=== PATIENT | female | born 1965 | race African-American/Black ===

== ENCOUNTER 2017-05-18 16:52 | Emergency (ER) | payer OTHER ==
[2017-05-18] MEDS ORDERED: NS 0.9% 1000 ML* 1,000 ML IV ONE ×2 (16:58→20:17)
[2017-05-18 17:33] LABS: Hematocrit 39 % (35-47); Mean Corpuscular HGB Conc 33 g/dl (31-36); Mean Corpuscular Hemoglobin 30 pg (27-31); Mean Corpuscular Volume 89 fL (80-97); Mean Platelet Volume 8 um3 (7.4-10.4); Red Cell Distribution Width 14 % (10.5-15); White Blood Count 7.6 10^3/ul (3.5-10.8)
[2017-05-18 17:54] LABS: Albumin 3.6 g/dL (3.2-5.2); BUN/Creatinine Ratio 12.8 (8-20); Calcium 9.2 mg/dL (8.6-10.3); EGFR African American 81.1 (>60); Globulin 3.7 g/dL (2-4); Magnesium 1.7 mg/dL (1.9-2.7); Potassium 3.8 mmol/L (3.5-5.0); Total Bilirubin 0.4 mg/dL (0.2-1.0); Total Protein 7.3 g/dL (6.4-8.9)
[2017-05-18 18:18] LABS: TSH (Thyroid Stimulating Horm) 2.03 mcIU/mL (0.34-5.60)
[2017-05-18 19:32] LABS: Urine Bilirubin Negative (Negative); Urine Glucose Negative (Negative); Urine Nitrite Negative (Negative)
[2017-05-18] MEDS ORDERED: Meclizine TAB* 12.5 MG PO ONE ×2 (20:22→21:28)
--- NOTE | 2017-05-18 21:26 | ED ---
Adán Agee Thomas, scribed for Sindy Hammer MD on 05/18/17 at 1740 . Syncope/Near Syncope - HPI Summary HPI Summary: The pt is a 51 y/o F presenting to the ED s/p a syncopal episode that occurred today at 16:00. The patient was walking in [facility] with her daughter when she began to feel lightheaded and nauseated. She sat down on a park bench, and after a minute she had a syncopal episode with LOC. Per her daughter, she had went limp and started to lean back and her head went back. When the patient woke up after a few minutes, she had no memory of the event. The patient did not go to work this AM due to generalized malaise and she did not sleep well last night. In the ED, she does note a pressure behind her eye. Pt denies headache and any pain in the ED. She is accompanied by her daughter. She has been eating normally lately. The patient had a syncopal episode with LOC two weeks ago. - History Of Current Complaint Chief Complaint: EDSyncope Time Seen by Provider: 05/18/17 16:58 Hx Obtained From: Patient, Family/Online Community Manager - daughter present Onset/Duration: Sudden Onset, Lasting Days - onset today at 16:00, Still Present Timing: Constant Context: Witnessed - by daughter Aggravating Factor(s): Nothing Alleviating Factor(s): Spontaneous Resolution Associated Signs And Symptoms: Lightheadedness, Other - Nausea, generalized malaise, pressure behind eye; NEG: WILL Related History: Similar Episode/Dx as - syncope with LOC two weeks ago - Allergies/Home Medications Allergies/Adverse Reactions: Allergies Allergy/AdvReac Type Severity Reaction Status Date / Time Bupropion [From Wellbutrin] Allergy Hallucinati Verified 05/18/17 21:10 ons Morphine Allergy Hives Verified 05/18/17 21:03 PMH/Surg Hx/FS Hx/Imm Hx Previously Healthy: No Endocrine/Hematology History: Reports: Hx Diabetes History: Denies: Hx Dialysis - Surgical History Surgery Procedure, Year, and Place: partial hysterectomy Infectious Disease History: Yes Infectious Disease History: Denies: Traveled Outside the [place] in Last 30 Days - Family History Known Family History: Positive: Hypertension - Social History Occupation: Employed Full-time - at [employer] Lives: With Family Alcohol Use: None Hx Substance Use: No Substance Use Type: Reports: None Hx Tobacco Use: No Smoking Status (MU): Never Smoked Tobacco Review of Systems Positive: Other - Generlized Positive: Other - Pressure behind eye Positive: Nausea Neurological: Other - Syncope with LOC today at 16:00, lightheadedness Negative: Headache All Other Systems Reviewed And Are Negative: Yes Physical Exam Triage Information Reviewed: Yes Vital Signs On Initial Exam: Initial Vitals Temp Pulse Resp BP Pulse Ox 97.4 F 70 17 118/65 98 05/18/17 17:01 05/18/17 17:01 05/18/17 17:01 05/18/17 17:01 05/18/17 17:01 Vital Signs Reviewed: Yes Appearance: Positive: Well-Appearing, No Pain Distress Skin: Positive: Warm, Skin Color Reflects Adequate Perfusion, Dry Eyes: Positive: EOMI, MERISSA ENT: Positive: Pharynx normal, TMs normal Neck: Positive: Supple, Nontender Respiratory/Lung Sounds: Positive: Clear to Auscultation, Breath Sounds Present. Negative: Rales, Rhonchi, Wheezes Cardiovascular: Positive: RRR, Other - No gallop. Negative: Murmur, Rub Abdomen Description: Positive: Nontender, Soft, Other: - No rebound. Negative: Distended, Guarding Bowel Sounds: Positive: Present Musculoskeletal: Positive: Strength/ROM Intact. Negative: Edema Left, Edema Right Neurological: Positive: Sensory/Motor Intact, Alert, Oriented to Person Place, Time, CN Intact II-III Psychiatric: Positive: Affect/Mood Appropriate Diagnostics - Vital Signs Vital Signs Temp Pulse Resp BP Pulse Ox 05/18/17 17:01 97.4 F 70 17 118/65 98 - Laboratory Lab Results: Lab Results 05/18/17 05/18/17 05/18/17 Range/Units 17:18 17:18 17:18 WBC 7.6 (3.5-10.8) 10^3/ul RBC 4.40 (4.0-5.4) 10^6/ul Hgb 13.0 (12.0-16.0) g/dl Hct 39 (35-47) % MCV 89 (80-97) fL MCH 30 (27-31) pg MCHC 33 (31-36) g/dl RDW 14 (10.5-15) % Plt Count 343 (150-450) 10^3/ul MPV 8 (7.4-10.4) um3 Neut % (Auto) 57.8 (38-83) % Lymph % (Auto) 34.8 (25-47) % Mclennan % (Auto) 4.9 (1-9) % Eos % (Auto) 1.5 (0-6) % Baso % (Auto) 1.0 (0-2) % Absolute Neuts (auto) 4.4 (1.5-7.7) 10^3/ul Absolute Lymphs (auto) 2.7 (1.0-4.8) 10^3/ul Absolute Monos (auto) 0.4 (0-0.8) 10^3/ul Absolute Eos (auto) 0.1 (0-0.6) 10^3/ul Absolute Basos (auto) 0.1 (0-0.2) 10^3/ul Absolute Nucleated RBC 0 10^3/ul Nucleated RBC % 0.1 Sodium 139 (133-145) mmol/L Potassium 3.8 (3.5-5.0) mmol/L Chloride 106 (101-111) mmol/L Carbon Dioxide 27 (22-32) mmol/L Anion Gap 6 (2-11) mmol/L BUN 12 (6-24) mg/dL Creatinine 0.94 (0.51-0.95) mg/dL Est GFR ( Amer) 81.1 (>60) Est GFR (Non-Af Amer) 63.0 (>60) BUN/Creatinine Ratio 12.8 (8-20) Glucose 105 H (70-100) mg/dL Lactic Acid 1.2 (0.5-2.0) mmol/L Calcium 9.2 (8.6-10.3) mg/dL Magnesium 1.7 L (1.9-2.7) mg/dL Total Bilirubin 0.40 (0.2-1.0) mg/dL AST 14 (13-39) U/L ALT 8 (7-52) U/L Alkaline Phosphatase 97 (34-104) U/L Troponin I 0.00 (<0.04) ng/mL Total Protein 7.3 (6.4-8.9) g/dL Albumin 3.6 (3.2-5.2) g/dL Globulin 3.7 (2-4) g/dL Albumin/Globulin Ratio 1.0 (1-3) TSH 2.03 (0.34-5.60) mcIU/mL Urine Color Urine Appearance Urine pH (5-9) Ur Specific [place] (1.010-1.030) Urine Protein (Negative) Urine Ketones (Negative) Urine Blood (Negative) Urine Nitrate (Negative) Urine Bilirubin (Negative) Urine Urobilinogen (Negative) Ur Leukocyte Esterase (Negative) Urine Glucose (Negative) 05/18/17 Range/Units 17:45 WBC (3.5-10.8) 10^3/ul RBC (4.0-5.4) 10^6/ul Hgb (12.0-16.0) g/dl Hct (35-47) % MCV (80-97) fL MCH (27-31) pg MCHC (31-36) g/dl RDW (10.5-15) % Plt Count (150-450) 10^3/ul MPV (7.4-10.4) um3 Neut % (Auto) (38-83) % Lymph % (Auto) (25-47) % Mclennan % (Auto) (1-9) % Eos % (Auto) (0-6) % Baso % (Auto) (0-2) % Absolute Neuts (auto) (1.5-7.7) 10^3/ul Absolute Lymphs (auto) (1.0-4.8) 10^3/ul Absolute Monos (auto) (0-0.8) 10^3/ul Absolute Eos (auto) (0-0.6) 10^3/ul Absolute Basos (auto) (0-0.2) 10^3/ul Absolute Nucleated RBC 10^3/ul Nucleated RBC % Sodium (133-145) mmol/L Potassium (3.5-5.0) mmol/L Chloride (101-111) mmol/L Carbon Dioxide (22-32) mmol/L Anion Gap (2-11) mmol/L BUN (6-24) mg/dL Creatinine (0.51-0.95) mg/dL Est GFR ( Amer) (>60) Est GFR (Non-Af Amer) (>60) BUN/Creatinine Ratio (8-20) Glucose (70-100) mg/dL Lactic Acid (0.5-2.0) mmol/L Calcium (8.6-10.3) mg/dL Magnesium (1.9-2.7) mg/dL Total Bilirubin (0.2-1.0) mg/dL AST (13-39) U/L ALT (7-52) U/L Alkaline Phosphatase (34-104) U/L Troponin I (<0.04) ng/mL Total Protein (6.4-8.9) g/dL Albumin (3.2-5.2) g/dL Globulin (2-4) g/dL Albumin/Globulin Ratio (1-3) TSH (0.34-5.60) mcIU/mL Urine Color Straw Urine Appearance Cloudy Urine pH 7.0 (5-9) Ur Specific [place] 1.006 L (1.010-1.030) Urine Protein Negative (Negative) Urine Ketones Negative (Negative) Urine Blood Negative (Negative) Urine Nitrate Negative (Negative) Urine Bilirubin Negative (Negative) Urine Urobilinogen Negative (Negative) Ur Leukocyte Esterase Negative (Negative) Urine Glucose Negative (Negative) Result Diagrams: 05/18/17 17:18 05/18/17 17:18 Lab Statement: Any lab studies that have been ordered have been reviewed, and results considered in the medical decision making process. - EKG 17:09 Cardiac Rate: NL - 74 BPM EKG Interpretation: Normal EKG. Re-Evaluation - Re-Evaluation First Eval Re-Evaluation Time: 20:23 Change: Unchanged Comment: She now describes her feeling as a little more like vertigo. Orthostatics are fine. No neck pain, WILL, double vision, slurred speech, or dysphagia. Course/Dx Course Of Treatment: this 51 yo female noted increased fatigue today and stayed home from work later in the day she walked down to the bus stop to get her teenage daughter off the bus and started feeling dizzy and she sat down with her daughter and passed out next to her without any headinjury. She denies any sob, cp, headache, neck pain, double vision , difficulty swallowing , or slurred speech. Here a syncope work up was done and orthostatics were done which were negative but pt was very dizzy. It became clear that she is more than likely having vertigo but denies any upper respiratory symptoms lately,has normal tm's no tinnitus and normal cerebellar function. She was given antivert with some relief of her symptoms and she will be going home. - Diagnoses Provider Diagnoses: Vertigo, Syncope Discharge - Discharge Plan Condition: Stable Disposition: HOME Prescriptions: Meclizine TAB* [Antivert 12.5 TAB*] 25 mg PO TID PRN #20 tab PRN Reason: Nausea Patient Education Materials: Vertigo (ED), Syncope (ED) Referrals: [facility] [Outside] - 2 Days Additional Instructions: Use the [facility] service to find a primary care physician and make an appointment. The documentation as recorded by the Adán landa Thomas accurately reflects the service I personally performed and the decisions made by me, Sindy Hammer MD.
[2017-05-18 21:50] VITALS: BP 131/80
== END 2017-05-18 21:53 | disposition home or self-care (01) ==
LOC: ED 16:52
DX: R42 Dizziness and giddiness (principal); R55 Syncope and collapse; R53.81 Other malaise; R11.0 Nausea; H57.10 Ocular pain, unspecified eye; E11.9 Type 2 diabetes mellitus without complications; Z88.5 Allergy status to narcotic agent; Z88.8 Allergy status to other drugs, medicaments and biological substances; Z90.710 Acquired absence of both cervix and uterus
CPT/HCPCS: 36415; 80053; 81003; 83605; 83735; 84443; 84484; 85025; 93005; 96360; 96361; 99283; A9270-GY

== ENCOUNTER 2018-06-06 16:45 | Emergency (ER) | payer OTHER ==
--- NOTE | 2018-06-06 18:14 | ED ---
Upper Extremity Pain - HPI Summary HPI Summary: 52-year-old female presents with left thigh pain the past 3 weeks. She states that extends from her hip to the top aspect of her knee. She denies any injury. Denies any weakness. No numbness or tingling. She states is an ache- like pain. She is taking Tylenol with relief. She does have family history of blood clots. She denies any recent travel or being on hormones. She is not a smoker. She states the pain is worse when she walks. - History of Current Complaint Chief Complaint: EDExtremityLower Stated Complaint: RT THIGH PAIN Time Seen by Provider: 06/06/18 17:28 - Allergies/Home Medications Allergies/Adverse Reactions: Allergies Allergy/AdvReac Type Severity Reaction Status Date / Time MS Bupropion Allergy Hallucinati Verified 05/18/17 21:10 [From Wellbutrin] ons MS Morphine [Morphine] Allergy Hives Verified 05/18/17 21:03 PMH/Surg Hx/FS Hx/Imm Hx Endocrine/Hematology History: Reports: Hx Diabetes Cardiovascular History: Reports: Hx Hypertension History: Denies: Hx Dialysis - Surgical History Surgery Procedure, Year, and Place: partial hysterectomy Infectious Disease History: No Infectious Disease History: Denies: Traveled Outside the [place] in Last 30 Days - Family History Known Family History: Positive: Hypertension - Social History Alcohol Use: None Hx Substance Use: No Substance Use Type: Reports: None Hx Tobacco Use: No Smoking Status (MU): Never Smoked Tobacco Review of Systems Negative: Fever Negative: Chest Pain Negative: Shortness Of Breath Positive: Myalgia - left thigh All Other Systems Reviewed And Are Negative: Yes Physical Exam Triage Information Reviewed: Yes Vital Signs On Initial Exam: Initial Vitals Temp Pulse Resp BP Pulse Ox 97.9 F 72 16 131/91 100 06/06/18 17:19 06/06/18 17:19 06/06/18 17:19 06/06/18 17:19 06/06/18 17:19 Vital Signs Reviewed: Yes Appearance: Positive: Well-Appearing Skin: Positive: Warm, Dry Head/Face: Positive: Normal Head/Face Inspection Eyes: Positive: Normal, Conjunctiva Clear ENT: Positive: Pharynx normal Respiratory/Lung Sounds: Positive: Clear to Auscultation, Breath Sounds Present Cardiovascular: Positive: Normal, RRR Musculoskeletal: Positive: Strength/ROM Intact - left thigh, Other - tenderness left thigh, good pulses, sensation grossly intact Neurological: Positive: Normal Psychiatric: Positive: Normal Diagnostics - Vital Signs Vital Signs Temp Pulse Resp BP Pulse Ox 06/06/18 17:19 97.9 F 72 16 131/91 100 - Laboratory Lab Statement: Any lab studies that have been ordered have been reviewed, and results considered in the medical decision making process. - Ultrasound No standard instances Ultrasound Interpretation: No Acute Changes Ultrasound Interpretation Completed By: Radiologist Course/Dx - Course Course Of Treatment: 52-year-old female presents with left thigh pain the past 3 weeks. She states that extends from her hip to the top aspect of her knee. She denies any injury. Denies any weakness. No numbness or tingling. She states is an ache-like pain. She is taking Tylenol with relief. She does have family history of blood clots. She denies any recent travel or being on hormones. She is not a smoker. She states the pain is worse when she walks. On exam tenderness over the left anterior thigh. Neurovascular intact. Ultrasound shows no dvt. in course of ED patient devloped itchy rash on neck will treat as hives with benadyl. told to follow up with primary. patient understand and agrees with plan. - Diagnoses Differential Diagnosis/HQI/PQRI: Positive: Strain, Sprain, Other - dvt Provider Diagnoses: Left leg pain, Rash Discharge - Sign-Out/Discharge Documenting (check all that apply): Patient Departure - Discharge Plan Condition: Good Disposition: HOME Patient Education Materials: Leg Pain (ED) Referrals: Rehan Soto MD [Primary Care Provider] - Additional Instructions: Take Tylenol or ibuprofen every 6 hours as needed for pain take benadryl for rash every 6 hours Apply ice, rest, elevate Follow up with primary care physician within 5 days Return to ED if develop any new or worsening symptoms - Billing Disposition and Condition Condition: GOOD Disposition: Home
[2018-06-06] MEDS ORDERED: diPHENhydraMINE PO* 25 MG PO ONE (20:33)
--- NOTE | 2018-06-06 20:40 | RAD ---
EXAM: US Duplex Bilateral Lower Extremity Veins CLINICAL HISTORY: 52 years old, female; Pain; Leg, upper; Left; Additional info: Left thigh pain TECHNIQUE: Real-time duplex ultrasound scan of the bilateral lower extremity veins integrating B-mode two-dimensional vascular structure, Doppler spectral analysis, color flow Doppler imaging and compression. COMPARISON: No relevant prior studies available. FINDINGS: Right deep veins: No DVT in the right common femoral, femoral, proximal deep femoral or popliteal veins. The veins demonstrate normal color flow, are normally compressible, with normal augmentation response. Pulsatile venous flow is noted. Right superficial veins: Unremarkable. No thrombus in the visualized right great saphenous vein. Left deep veins: No DVT in the left common femoral, femoral, proximal deep femoral or popliteal veins. The veins demonstrate normal color flow, are normally compressible, with normal augmentation response. Pulsatile venous flow is noted. Left superficial veins: Unremarkable. No thrombus in the visualized left great saphenous vein. Soft tissues: No acute findings. No popliteal cyst. IMPRESSION: 1. No evidence of left or right lower extremity DVT 2. Pulsatile venous flow noted in both lower extremities which can be seen with elevated right heart pressures. To contact [facility] with a general question: [facility] [place] - [phone] For direct physician to physician contact: Physician Hotline - [phone] [facility] ([facility] Facility ID #[id number])
[2018-06-06 20:52] VITALS: BP 129/76
== END 2018-06-06 20:51 | disposition home or self-care (01) ==
LOC: ED 16:45
DX: M79.652 Pain in left thigh (principal); R21 Rash and other nonspecific skin eruption; Z88.5 Allergy status to narcotic agent; Z88.8 Allergy status to other drugs, medicaments and biological substances
CPT/HCPCS: 99283; A9270-GY